=== PATIENT | female | born 1985 | race Two or more races ===

== ENCOUNTER 2016-10-14 18:06 | Emergency (ER) | payer MEDICAID, OTHER ==
[~2016-10-14] VITALS: Ht 152.4 cm; Wt 57.5 kg
[2016-10-14 18:52] VITALS: Ht 152.4 cm; Wt 57.5 kg
--- NOTE | 2016-10-14 20:09 | RADRPT ---
PROCEDURE: OBSTETRICAL ULTRASOUND WITH ENDOVAGINAL IMAGES CLINICAL INDICATION: pelvic pain, vaginal bleed TECHNIQUE: Multiple sonographic images of the pelvis were obtained utilizing a transabdominal and endovaginal technique. The images were reviewed on a PACS workstation. COMPARISON: None. LMP: 08/08/2016 FINDINGS: The uterus measures 8.2 x 4.6 x 5.1 cm. The endometrial echo complex measures 9 mm in thickness. T here is no evidence of an intrauterine . The right ovary measures 2.5 x 1.8 x 2.3 cm. The left ovary measures 2.9 x 2.0 x 2.5 cm. There is no rmal vascular flow in both ovaries. No significant ovarian lesions are seen. No significant pelvic free fluid is identified. IMPRESSION: Thickening of the endometrium to 9 mm without evidence of an intrauterine . Findings may be due to an early intrauterine although an ectopic cannot be entirely excluded. Short-term follow-up ultrasound and serial Beta HCG measurements are recommended for further evalu ation. Bilateral ovaries and adnexa are unremarkable. RPTAT: EE Physician Vinay Date Time Electronically viewed and signed by Physician Vinay on 10/14/2016 20:09 /
[2016-10-14 20:38] LABS: BASOPHIL # 0.1 10^3/ul (0.0-0.1); BASOPHILS % 0.5 % (0.0-2.0); EOSINOPHILS # 0.2 10^3/ul (0.0-0.5); EOSINOPHILS % 1.1 % (0.0-7.0); HEMATOCRIT 41.9 % (37.0-47.0); HEMOGLOBIN 13.9 g/dl (12.0-16.0); LYMPHOCYTES # 4.1 10^3/ul (0.8-2.9); LYMPHOCYTES % 24.2 % (15.0-51.0); MEAN CORPUSCULAR HEMOGLOBIN 28.7 pg (29.0-33.0); MEAN CORPUSCULAR HGB CONC 33.3 g/dl (32.0-37.0); MEAN CORPUSCULAR VOLUME 86.3 fl (82.0-101.0); MEAN PLATELET VOLUME 8.3 fl (7.4-10.4); MONOCYTES % 6.1 % (0.0-11.0); NEUTROPHIL # 11.4 10^3/ul (1.6-7.5); NEUTROPHILS % 68.1 % (39.0-77.0); PLATELET COUNT 278 10^3/UL (140-440); RED BLOOD COUNT 4.86 10^6/ul (4.20-5.40); RED CELL DISTRIBUTION WIDTH 13.4 % (11.5-14.5); UNCORRECTED WBC 16.8 10^3/ul (4.8-10.8); WHITE BLOOD COUNT 16.8 10^3/ul (4.8-10.8)
[2016-10-14 20:39] LABS: ADD UMIC YES; URINE BILIRUBIN (Dip) NEGATIVE (NEGATIVE); URINE BLOOD (Dip) 3+ (NEGATIVE); URINE COLOR LT. YELLOW (YELLOW); URINE GLUCOSE (Dip) NEGATIVE (NEGATIVE); URINE KETONES (Dip) NEGATIVE (NEGATIVE); URINE LEUKOCYTE ESTERASE (Dip) TRACE (NEGATIVE); URINE NITRITE (Dip) NEGATIVE (NEGATIVE); URINE TOTAL PROTEIN (Dip) 1+ (NEGATIVE); URINE UROBILINOGEN (Dip) 0.2 E.U./dL (0.1-1.0)
[2016-10-14 20:44] LABS: CONDITION 1
[2016-10-14 21:06] LABS: BACTERIA,URINE FEW; SQUAMOUS EPITHELIAL CELL,UR MANY; URINE RBCS >200 /HPF (0)
[2016-10-14] MEDS ORDERED: CEPH-443 PO (21:26)
[2016-10-14] MEDS ORDERED: ACET500C5 PO (21:33)
--- NOTE | 2016-10-14 21:55 | ERD ---
ER Documentation Chief Complaint Date/Time DATE: 10/14/16 TIME: 21:50 Chief Complaint 5 weeks , vag bleeding w/ pelvic pain HPI Patient is a 31-year-old female who is who presents to the ED with vaginal bleeding x 2 days and pelvic pain. She states that she had light spotting 2 days ago and has had increase in vaginal bleeding in the last 2 days. She also complains of bilateral pelvic pain. She has not seen an OB doctor for her . She states that her last normal menstrual period was sometime in July. She denies fever or chills. She denies urinary symptoms. She denies chest pain, cough, shortness of breath or difficulty breathing. She denies leg pain or swelling. ROS All systems reviewed and are negative except as per history of present illness. Medications Home Meds Active Scripts Acetaminophen* (Tylophen*) 500 Mg Capsule, 1 CAP PO Q6H Y for PAIN AND OR ELEVATED TEMP, #20 CAP Prov:SHAUNNA DE JESUS PA-C 10/14/16 Cephalexin* (Keflex*) 500 Mg Capsule, 500 MG PO BID for 7 Days, CAP Prov:SHAUNNA DE JESUS PA-C 10/14/16 Allergies Allergies: Coded Allergies: No Known Allergy (Unverified , 10/14/16) PMhx/Soc Medical and Surgical Hx: pt denies Medical Hx, pt denies Surgical Hx History of Surgery: No Anesthesia Reaction: No Hx Neurological Disorder: No Hx Respiratory Disorders: No Hx Cardiac Disorders: No Hx Psychiatric Problems: No Hx Miscellaneous Medical Probl: No Hx Alcohol Use: No Hx Substance Use: No Hx Tobacco Use: No Smoking Status: Never smoker FmHx Family History: No coronary disease, No diabetes, No other Physical Exam Vitals Vital Signs Date Time Temp Pulse Resp B/P Pulse Ox O2 Delivery O2 Flow Rate FiO2 10/14/16 18:52 97.8 76 20 128/79 100 Physical Exam GENERAL: Well-developed, well-nourished female. Appears in no acute distress. HEAD: Normocephalic, atraumatic. EYES: Pupils are equally reactive bilaterally. EOMs grossly intact. No conjunctival erythema. ENT: Moist mucous membranes. No uvula deviation. No kissing tonsils. No exudates. NECK: Supple. No lymphadenopathy or thyromegaly. No meningismus. negative kernig. negative brudinski. LUNG: Clear to auscultation bilaterally. No rhonchi, wheezing, rales or coarse breath sounds. HEART: Regular rate and rhythm. No murmurs, rubs or gallops. ABDOMEN: No scars, ecchymosis or rashes noted. Soft, nontender, and nondistended. Positive bowel sounds in all four quadrants. No rebound tenderness , no guarding. (-) McBurneys point tenderness. No CVA tenderness. Bilateral pelvic pain BACK: No midline tenderness. Extremities: Equal pulses bilaterally. No peripheral clubbing, cyanosis or edema. No unilateral leg swelling. NEUROLOGIC: Alert and oriented. Moving all four extremities. 5/5 strength in all extremities. Normal speech. Steady gait. SKIN: Normal color. Warm and dry. No rashes or lesions. Capillary refill < 2 seconds Result Diagram: 10/14/162004 Results 24 hrs Laboratory Tests Test 10/14/16 20:05 Basophils # 0.110^3/ul Basophils % 0.5% Beta HCG, Quantitative 932.0mIU/ml Blood Morphology Comment Eosinophils # 0.210^3/ul Eosinophils % 1.1% Hematocrit 41.9% Hemoglobin 13.9g/dl Lymphocytes # 4.110^3/ul Lymphocytes % 24.2% Mean Corpuscular Hemoglobin 28.7pg Mean Corpuscular Hemoglobin Concent 33.3g/dl Mean Corpuscular Volume 86.3fl Mean Platelet Volume 8.3fl Monocytes # 1.010^3/ul Monocytes % 6.1% Neutrophils # 11.410^3/ul Neutrophils % 68.1% Nucleated Red Blood Cells # 0.010^3/ul Nucleated Red Blood Cells % 0.0/100WBC Platelet Count 03941^3/UL Red Blood Count 4.8610^6/ul Red Cell Distribution Width 13.4% Urine Bacteria FEW Urine Bilirubin NEGATIVE Urine Clarity SLIGHTLY CLOUDY Urine Color LT. YELLOW Urine Glucose NEGATIVE% Urine Hemoglobin 3+ Urine Ketones NEGATIVE Urine Leukocyte Esterase TRACE Urine Microscopic RBC >200/HPF Urine Microscopic WBC 0-2/HPF Urine Nitrite NEGATIVE Urine Specific [place] 1.020 Urine Squamous Epithelial Cells MANY Urine Total Protein 1+ Urine Urobilinogen 0.2 E.U./dL Urine pH 6.0 White Blood Count 16.810^3/ul Procedures/MDM ER COURSE: I kept the patient and/or family informed of laboratory and diagnostic imaging results throughout the emergency room course. EKG, MONITORS, & DIAGNOSTIC IMAGING: [place] [id number] Radiology Main Line: [phone] DIAGNOSTIC IMAGING REPORT Patient: PAUL LARSON : 1985 Age: 31 Sex: F MR #: [id number] DOS: 10/14/161926 Ordering MD: SHAUNNA DE JESUS PA-C Location: [facility] Room/Bed: PROCEDURE: OBSTETRICAL ULTRASOUND WITH ENDOVAGINAL IMAGES CLINICAL INDICATION: pelvic pain, vaginal bleed TECHNIQUE: Multiple sonographic images of the pelvis were obtained utilizing a transabdominal and endovaginal technique. The images were reviewed on a PACS workstation. COMPARISON: None. LMP: 08/08/2016 FINDINGS: The uterus measures 8.2 x 4.6 x 5.1 cm. The endometrial echo complex measures 9 mm in thickness. There is no evidence of an intrauterine . The right ovary measures 2.5 x 1.8 x 2.3 cm. The left ovary measures 2.9 x 2.0 x 2.5 cm. There is normal vascular flow in both ovaries. No significant ovarian lesions are seen. No significant pelvic free fluid is identified. IMPRESSION: Thickening of the endometrium to 9 mm without evidence of an intrauterine . Findings may be due to an early intrauterine although an ectopic cannot be entirely excluded. Short-term follow-up ultrasound and serial Beta HCG measurements are recommended for further evaluation. Bilateral ovaries and adnexa are unremarkable. RPTAT: EE Physician Vinay Date Time Electronically viewed and signed by Physician Vinay on 10/14/2016 20:09 RA/ CC: SHAUNNA DE JESUS PA-C MEDICATIONS: Tylenol. Patient tolerated medication well with no adverse reaction. LAB INTERPRETATION: CBC showed no evidence of systemic infection or severe anemia. UA showed trace leukocytes, no, nitrites or hematuria. BHC Rh: O+ MEDICAL DECISION MAKING: This is a 31 year old female who is who presents with vaginal bleeding and pelvic pain. Vital signs were reviewed. Patient is afebrile. Patient is not hypoxic. Patient has a threatened . Low suspicion for ectopic , , molar , endometriosis, PID, cervicitis, septic , molar , HELLP syndrome, preeclampsia, eclampsia, placenta previa, placenta abruptia. Low suspicion for ovarian torsion, PID, tuboovarian abscess , ectopic , bowel obstruction, pyelonephritis, UTI, appendicitis, cervicitis, septic , molar , HELLP syndrome, preeclampsia, eclampsia, placenta previa, placenta abruptia. Beta hCG is 932. I have low suspicion for ectopic but it cannot be ruled out. Patient needs to return in the ED for 2 days for recheck of ultrasound and blood work. DISCHARGE: At this time, patient is stable for discharge and outpatient management with no new complaints during the ER course. Patient was sent home with keflex. Patient will be discharged home with instructions to recheck for new or worsening symptoms such as fever, nausea, weakness, LOC and to follow up with primary care in the next 1-2 days. Patient was advised to return to the ER for any new or worsening symptoms. Plan was discussed and patient and/or family understands and agrees. Home instructions were given. Departure Diagnosis: Primary Impression: Vaginal bleeding in patient at less than 20 weeks ges... Condition: Stable Patient Instructions: Bleeding During Early Referrals: JACK ROTH MD (PCP) Additional Instructions: Llame al doctor MARCIA y alysia bernard GIULIANO PARA DENTRO DE 1-2 ARCE.Dgale a la secretaria que nosotros le instruimos hacer esta giuliano.Avise o llame si galarza condicin se empeora antes de la giuliano. Regresa aqui si peor o no mejor. SHAUNNA DE JESUS PA-C Oct 14, 2016 21:55
[2016-10-15 00:07] VITALS: BP 120/75; PULSE 76; RESP 18; TEMP 97.8
== END 2016-10-14 22:06 | disposition home or self-care (01) ==
LOC: FTE 18:06
DX: O20.9 Hemorrhage in early pregnancy, unspecified (principal); O26.891 Other specified pregnancy related conditions, first trimester; R10.2 Pelvic and perineal pain; Z3A.01 Less than 8 weeks gestation of pregnancy
CPT/HCPCS: 36415; 76801; 76817; 81001; 81003; 84702; 85025; 86900; 86901

== ENCOUNTER 2016-10-16 17:12 | Emergency (ER) | payer MEDICAID ==
[~2016-10-16] VITALS: Wt 63.0 kg
[~2016-10-16 17:12] MED LIST: ACET500C5 PO; CEPH-443 PO
[2016-10-16 18:53] LABS: BASOPHILS % 0.4 % (0.0-2.0); EOSINOPHILS # 0.2 10^3/ul (0.0-0.5); EOSINOPHILS % 1.6 % (0.0-7.0); HEMATOCRIT 37.9 % (37.0-47.0); LYMPHOCYTES # 3.7 10^3/ul (0.8-2.9); LYMPHOCYTES % 30.3 % (15.0-51.0); MEAN CORPUSCULAR HEMOGLOBIN 28.8 pg (29.0-33.0); MEAN CORPUSCULAR HGB CONC 34.2 g/dl (32.0-37.0); MEAN CORPUSCULAR VOLUME 84.3 fl (82.0-101.0); MEAN PLATELET VOLUME 7.9 fl (7.4-10.4); MONOCYTE # 0.7 10^3/ul (0.3-0.9); MONOCYTES % 5.9 % (0.0-11.0); NEUTROPHIL # 7.7 10^3/ul (1.6-7.5); NEUTROPHILS % 61.8 % (39.0-77.0); PLATELET COUNT 284 10^3/UL (140-440); RED CELL DISTRIBUTION WIDTH 13.1 % (11.5-14.5); UNCORRECTED WBC 12.4 10^3/ul (4.8-10.8); WHITE BLOOD COUNT 12.4 10^3/ul (4.8-10.8)
[2016-10-16 18:54] LABS: CONDITION 1
--- NOTE | 2016-10-16 19:08 | RADRPT ---
PROCEDURE: US OB. CLINICAL INDICATION: . Evaluate size and dates. TECHNIQUE: Transabdominal and transvaginal imaging of the gravid uterus was performed. Images are reviewed on a high-resolution PACS workstation. COMPARISON: 10/14/2016. FINDINGS: Assigned due date is 05/15/2017. The uterus is unremarkable. The ovaries are unremarkable. IMPRESSION: 1. Unremarkable pelvic ultrasound. 2. No evidence of intrauterine . 3. No significant change from previous exam. RPTAT: QQ .Saurav Johnson MD, MD Date Time Electronically viewed and signed by .Saurav Johnson MD, MD on 10/16/2016 19:08 .M/
--- NOTE | 2016-10-16 19:37 | ERD ---
ER Documentation Chief Complaint Date/Time DATE: 10/16/16 TIME: 19:36 Chief Complaint VAG BLEED FOR A FEW DAYS. NEEDS RECHECK FOR BLOOD. MILD BLEEDING HPI This 31-year-old female has been having vaginal bleeding and slight cramping for last 3 days. Is approximately 6 week by dates. Seen here 2 days ago and had a quantitative hCG of 600 and a normal pelvic ultrasound. She was advised to have a 2 day recheck to evaluate for ectopic . Patient has persistent spotting with minimal cramping with no lives tissue. She denies fevers, vomiting, or upper abdominal pain. She denies urinary complaints. ROS All systems reviewed and are negative except as per history of present illness. Medications Home Meds Active Scripts Acetaminophen* (Tylophen*) 500 Mg Capsule, 1 CAP PO Q6H Y for PAIN AND OR ELEVATED TEMP, #20 CAP Prov:SHAUNNA DE JESUS PA-C 10/14/16 Cephalexin* (Keflex*) 500 Mg Capsule, 500 MG PO BID for 7 Days, CAP Prov:SHAUNNA DE JESUS PA-C 10/14/16 Allergies Allergies: Coded Allergies: No Known Allergy (Unverified , 10/14/16) PMhx/Soc History of Surgery: No Anesthesia Reaction: No Hx Neurological Disorder: No Hx Respiratory Disorders: No Hx Cardiac Disorders: No Hx Psychiatric Problems: No Hx Miscellaneous Medical Probl: No Hx Alcohol Use: No Hx Substance Use: No Hx Tobacco Use: No Physical Exam Vitals Vital Signs Date Time Temp Pulse Resp B/P Pulse Ox O2 Delivery O2 Flow Rate FiO2 10/16/16 17:17 98.8 81 20 133/72 98 Physical Exam Const: [] Head: Atraumatic Eyes: Normal Conjunctiva ENT: Normal External Ears, Nose and Mouth. Neck: Full range of motion..~ No meningismus. Resp: Clear to auscultation bilaterally Cardio: Regular rate and rhythm, no murmurs Abd: Soft, non tender, non distended. Normal bowel sounds Skin: No petechiae or rashes Back: No midline or flank tenderness Ext: No cyanosis, or edema Neur: Awake and alert Psych: Normal Mood and Affect Result Diagram: 10/16/16 8524 Results 24 hrs Laboratory Tests Test 10/16/16 18:38 Basophils # 0.010^3/ul Basophils % 0.4% Beta HCG, Quantitative 133.9mIU/ml Blood Morphology Comment Eosinophils # 0.210^3/ul Eosinophils % 1.6% Hematocrit 37.9% Hemoglobin 13.0g/dl Lymphocytes # 3.710^3/ul Lymphocytes % 30.3% Mean Corpuscular Hemoglobin 28.8pg Mean Corpuscular Hemoglobin Concent 34.2g/dl Mean Corpuscular Volume 84.3fl Mean Platelet Volume 7.9fl Monocytes # 0.710^3/ul Monocytes % 5.9% Neutrophils # 7.710^3/ul Neutrophils % 61.8% Nucleated Red Blood Cells # 0.010^3/ul Nucleated Red Blood Cells % 0.0/100WBC Platelet Count 33299^3/UL Red Blood Count 4.5010^6/ul Red Cell Distribution Width 13.1% White Blood Count 12.410^3/ul Procedures/MDM Quantitative hCG is 133 compared to 602 days ago. Patient is Rh+ from previous visit. Patient was stable, no sore throughout the ED course. Pelvic ultrasound shows no intrauterine. She noted a lot of or acute findings. Patient presents with findings consistent with completed . Patient will be discharged home with instructions to follow-up with her OB this week or return for worsening bleeding, pain, fevers, new or worsening symptoms. Signs or symptoms consistent with acute abdomen, additional causes of abdominal pain and bleeding. Departure Diagnosis: Primary Impression: Complete Condition: Stable Patient Instructions: Miscarriage, Spontaneous (Completed) Referrals: JACK ROTH MD (PCP) Additional Instructions: HORMONES ESTA MAS ABAJO Y ULTRSONIDO EL MISMO . CHEQUE CON DELACRUZ DOCTOR ESTA SEMANA. O PARA MAS SIMPTOMAS. DUNCAN LAWTON MD Oct 16, 2016 19:37
[2016-10-16 19:46] VITALS: BP 134/80; PULSE 62; RESP 17; TEMP 98.9
== END 2016-10-16 19:46 | disposition home or self-care (01) ==
LOC: FTE 17:12
DX: O03.9 Complete or unspecified spontaneous abortion without complication (principal)
CPT/HCPCS: 36415; 76801; 76817; 84702; 85025; Z7502